=== PATIENT | male | born 1990 ===

== ENCOUNTER 2021-01-19 23:51 | Emergency (ER) | payer OTHER, SELFPAY ==
--- NOTE | ~2021-01-19 | XR_ITS ---
EXAMINATION: XR CHEST CLINICAL INFORMATION: Productive cough. COMPARISON: Chest radiograph dated 06/20/2014. TECHNIQUE: 2 views of the chest were obtained. FINDINGS: The lungs are clear. The cardiomediastinal silhouette is normal in size. There is no pleural effusion or pneumothorax. No acute osseous abnormality. XR/XR chest 2V IMPRESSION: No acute cardiopulmonary findings.
[2021-01-19 23:58] VITALS: BP 149/94; PULSE 115; RESP 16; TEMP 36.7; O2SAT 96; BMI 36.9
[2021-01-20 01:29] LABS: COVID-19 Test Negative (Negative)
--- NOTE | 2021-01-20 01:52 | ED_ITS ---
HPI - General Adult General Chief complaint: General Medical Stated complaint: cold symptoms Time Seen by Provider: 01/20/21 01:52 Source: patient Mode of arrival: ambulatory History of Present Illness HPI narrative: 30-year-old male without significant past medical history presents with complaints of nasal congestion and itchy eyes with sneezing and cough for approximately 3 days without associated fevers, chills, GI or symptoms. Patient denies any recent travel or exposure to COVID-19 positive individuals and denies any shortness of breath. Related Data Allergies Allergy/AdvReac Type Severity Reaction Status Date / Time No Known Allergies Allergy Unverified 03/21/20 18:49 Review of Systems Review of Systems: Pertinent positives and negatives as stated in HPI 10 point review of systems otherwise negative. [facility] Past Medical History Source: nursing notes reviewed Social History Social History Advance Directives: No Advance Directives Information Provided: No Physical Exam Vital Signs: Vital Signs: Last Vital Signs Temp 98.1 F 01/19/21 23:58 Pulse 115 H 01/19/21 23:58 Resp 16 01/19/21 23:58 BP 149/94 H 01/19/21 23:58 Pulse Ox 96 01/19/21 23:58 Body Mass Index 36.9 VITAL SIGNS: Reviewed. GENERAL: Well developed, well nourished, in no acute distress. HEAD: Normocephalic/atraumatic EYES: PERRLA, EOMI EARS: Ext canals without abnormality, TMs non-bulging and non-erythematous NOSE: Nares patent bilateral, boggy turbinates OROPHARYNX: no oral lesions noted, posterior pharynx clear and non-erythematous without noted tonsillar enlargement/erythema/exudates NECK: Supple, no adenopathy LUNGS: Normal breath sounds. No adventitious sounds or accessory muscle use. SpO2<96> CARDIOVASCULAR: Regular rate and rhythm without noted murmurs ABDOMEN: Soft, non-tender, non-distended with bowel sounds. SKIN: Inspection of the skin reveals no rashes NEUROLOGIC: Alert and oriented x 4. Strength and sensation to light touch were grossly intact x 4. Course Course Course Narrative: 3-year-old male with history and clinical presentation consistent with allergic rhinitis and doubt COVID-19 or pneumonia. Reviewed all investigations which were negative for acute findings. These results were discussed with the patient at bedside he was discharged home in stable condition. Medical Decision Making Lab Data Labs: Lab Results 01/20/21 Range/Units 01:10 COVID-19 ([facility]) Negative (Negative) COVID-19 Clin Com See Note Discharge Plan Discharge Clinical Impression: Allergic rhinitis Patient Disposition: Home, Self-Care Instructions: Loratadine (By mouth), Fluticasone (Into the nose), Allergic Rhinitis (ED) Additional Instructions: 1. Recommend starting a daily routine with Claritin (loratadine) in combination with Flonase (fluticasone) as your symptoms are most consistent with allergices. 2. Follow-up with your primary care provider in the next 2-3 days for re- evaluation and further outpatient management. Return to the ER for acute worsening of your symptoms. Referrals: Physician,Unknown [Primary Care Provider] - 2 days
== END 2021-01-20 02:10 | disposition home or self-care (01) ==
PROVIDERS: Emergency Provider Student in an Organized Health Care Education/Training Program
DX: J30.9 Allergic rhinitis, unspecified (principal); Z20.822 Contact with and (suspected) exposure to COVID-19
CPT/HCPCS: 36415; 71046; 87635; 99283

== ENCOUNTER 2024-05-11 09:16 | Emergency (ER) | payer OTHER, SELFPAY ==
[2024-05-11 09:20] VITALS: BP 147/101; PULSE 107; RESP 20; TEMP 37.1; O2SAT 95; BMI 39.5
[2024-05-11 09:51] LABS: IDNOW Serial# 08D9AD1C; Strep A Nucleic Acid Negative (Negative)
[2024-05-11 10:20] LABS: Influenza A PCR NEGATIVE (Negative); Influenza B PCR NEGATIVE (Negative); Resp Syncy Virus RNA Qual PCR NEGATIVE (Negative); SARS COV2 PCR INHOUSE POSITIVE (Negative)
--- NOTE | 2024-05-11 11:03 | ED.URI ---
HPI - URI/Sore Throat General Chief Complaint: Upper Respiratory Symptoms Stated Complaint: sore [id number]-pigbmayy-[id number] bleed Time Seen by Provider: 05/11/24 10:45 Source: patient, RN notes reviewed and old records reviewed Mode of arrival: ambulatory History of Present Illness ED Provider: Vero Rico PA-C HPI Narrative: 33-year-old male no significant past medical history presenting to ED complaining of chills, sore throat, congestion, and headache since last night. Denies reported fever, cough, CP/SOB, sick contacts, travel Related Data Allergies Allergy/AdvReac Type Severity Reaction Status Date / Time No Known Allergies Allergy Verified 05/11/24 09:21 Review of Systems Review of Systems: Yes all other systems are reviewed and are negative Constitutional: Constitutional: Reports as per [facility] Past Medical History Attestation statement: The following information was validated with the patient. Source: old records reviewed Social History Social History Advance Directives: No Advance Directives Information Provided: Yes Physical Exam Vital Signs: Vital Signs: Last Vital Signs Temp 98.7 F 05/11/24 11:18 Pulse 107 H 05/11/24 11:18 Resp 20 05/11/24 11:18 BP 147/101 H 05/11/24 11:18 Pulse Ox 95 05/11/24 11:18 O2 Del Method Room Air 05/11/24 11:18 BMI result Body Mass Index 39.5 Const: General: cooperative, healthy appearing and no acute distress Orientation/consciousness: patient oriented x3 Limitations: no limitations HEENT: Head: Yes normal to inspection and Yes atraumatic Ears: hearing grossly normal bilaterally General nose exam: Normal external nose present Face and sinus: Yes normal facial exam Mouth: Normal oral and palatal mucosa present and no drooling Throat: Yes posterior oropharynx normal, Yes tonsils normal, Yes uvula midline, No peritonsillar mass, No uvula laterally displaced and No uvular edema Eyes: General: appearance normal, both eyes and all related structures EOM: EOMs intact bilaterally Neck: Neck: Yes normal visual inspection and Yes no meningeal signs Resp: Effort & Inspection: normal respiratory effort and no respiratory distress Cardio: Rate: regular rate Skin: Rashes: no rashes Wounds: no wounds Neuro: General: patient oriented x3, tone normal and no meningeal signs Cranial nerves: Yes CN's II-XII intact bilaterally Gait exam (Neuro): Normal gait present Extrem: General: Yes normal to inspection Course Course Course Narrative: COVID-19 positive Results discussed with patient including worrisome signs and symptoms and strict return precautions, and when to return to the emergency department. They verbalized understanding and feel safe for discharge at this time. Medical Decision Making Medical Decision Making [facility] Narrative: 33-year-old male no significant past medical history presenting to ED complaining of chills, sore throat, congestion, and headache since last night. On exam mildly hypertensive, tachycardic, NAD, nontoxic appearing, oropharynx WNL, uvula midline, talking in complete sentences, no drooling. No evidence of TRUCK PACKER or retropharyngeal abscess. Concern for viral illness vs pharyngitis. Low suspicion for pneumonia. Low suspicion for severe sepsis Plan: Viral testing, rapid strep Please refer to course for remaining clinical decision making, interpretation of labs/imaging results, and discussions with consultants and/or family members. Differential Diagnosis Differential Diagnoses: The differential diagnosis associated with the presentation includes As above Lab Data [facility] Lab Attestation statement: I reviewed the patient's lab results. Labs: Lab Results 05/11/24 Range/Units 09:37 Influenza Type A (PCR) NEGATIVE (Negative) Influenza Type B (PCR) NEGATIVE (Negative) RSV RNA Qual (PCR) NEGATIVE (Negative) SARS-CoV-2 RNA (RT-PCR) POSITIVE A (Negative) S. pyogenes GrpA DEDE Negative (Negative) Radiology Impression Discussion of test interpretation with radiology: I have reviewed the radiologist's reading. External Record Review External record reviewed: Inpatient record, Office record, Outpatient record, Prior outpatient labs, Prior outpatient radiology, Primary care record and Outside ED record Tests considered The following testing was considered but not selected: As above Prescription Management I considered prescription management with: Pain Medication, Antiviral and Antibiotic Discharge Plan Discharge Clinical Impression: COVID-19 Patient Disposition: Home, Self-Care Instructions: COVID-19 (Coronavirus Disease 2019) (ED) Additional Instructions: YOU HAVE COVID-19 At this time you will be okay for discharge. Please self isolate for 5 days. Do not expose yourself to others. You may not go to work or school. Please continue to follow cold instructions and wash your hands frequently. You may take Tylenol / Motrin as directed on the bottle for pain or fever. If you have constant or persistent shortness of breath, fever unresolved with medications, chest pain, or your unable to eat or drink please return to the ED CDC Guidelines for home isolation: - Stay away from others - WEAR A MASK if you are sick AND STAY HOME - Cover your mouth and nose with a tissue when you cough or sneeze. Dispose of tissues in a lined trash can and wash your hands immediately with soap and water for at least 20 seconds. If soap and water are not available, clean hands with alcohol-based hand paint line supervisor that contains at least 60% alcohol. - Clean your hands often with soap and water for at least 20 seconds - Avoid touching your eyes, nose and mouth with unwashed hands - Do not share dishes, drinking glasses, cups, eating utensils, towels, or bedding with other people in your home. After using these items, wash them thoroughly with soap and water or put in the flat grinder operator. - Clean high-touch surfaces in your isolation area ( sick room and bathroom) every day; let a caregiver clean and disinfect high-touch surfaces in other areas of the home. Clean the area or item with soap and water or another detergent if it is dirty. Then, use a household disinfectant. - Limit contact with pets and animals: If you must care for a pet, wash your hands before and after interacting with them) Referrals: Physician,Unknown J [Primary Care Provider] - Stand Alone Forms: Work/School Release Interventions: ED Discharge Assessment Last Done: 05/11/24 11:18 Discharge Date/Time: 05/11/24 11:19 Print Language: Yoruba
[2024-05-11 11:18] VITALS: BP 147/101; PULSE 107; RESP 20; TEMP 37.1; O2SAT 95
== END 2024-05-11 11:19 | disposition home or self-care (01) ==
PROVIDERS: Emergency Provider Emergency Medicine
DX: U07.1 COVID-19 (principal); J02.9 Acute pharyngitis, unspecified; R51.9 Headache, unspecified
CPT/HCPCS: 0241U; 87651; 99282; 99283